=== PATIENT | female | born 1970 | race African-American/Black ===

== ENCOUNTER 2019-04-17 08:52 | Emergency (ER) | payer BC, MEDICAID ==
[~2019-04-17] VITALS: Ht 165.1 cm; Wt 137.0 kg
[~2019-04-17 08:52] MED LIST: LOSARTAN; ZANTAC
[2019-04-17] MEDS ORDERED: ALBUTEROL (0.083%) 2.5MG/3ML NEB HHN STA (09:25)
[2019-04-17] MEDS ORDERED: PREDNISONE 20MG TABLET PO STA (09:25)
[2019-04-17] MEDS ORDERED: IPRATROPIUM BROMIDE (0.02%) 0.5MG/2.5ML NEB HHN STA (09:25)
[2019-04-17] MEDS ORDERED: OXYCODONE HCL/ACETAMINOPHEN 5/325MG TABLET PO ONE (09:30)
[2019-04-17 11:20] VITALS: BP 172/88
== END 2019-04-17 11:26 | disposition home or self-care (01) ==
LOC: ER 08:57
DX: M79.672 Pain in left foot (principal); J45.901 Unspecified asthma with (acute) exacerbation; I10 Essential (primary) hypertension; X50.1XXA Overexertion from prolonged static or awkward postures, initial encounter; Y93.89 Activity, other specified; Y92.9 Unspecified place or not applicable; Z98.51 Tubal ligation status
CPT/HCPCS: 71045; 73630; 94640; 99283; J7512; J7611; Z7610

== ENCOUNTER 2019-11-08 00:22 | Inpatient (IN) | payer BC, MEDICAID ==
[~2019-11-08] VITALS: Ht 154.1 cm; Wt 113.9 kg
[2019-11-08] MEDS ORDERED: SODIUM CHLORIDE 0.9% 1,000 ML IV ONE (02:15)
[2019-11-08 02:27] LABS: BASOPHILS % 0.6 % (0.0-2.0); EOSINOPHILS % 0.5 % (0.0-5.0); HEMATOCRIT. 38.3 % (36.0-48.0); HEMOGLOBIN. 12.9 g/dL (12.0-16.0); LYMPHOCYTES % 25.4 % (20.0-50.0); MEAN CORPUSCULAR HEMOGLOBIN 30.1 pg (28.0-32.0); MEAN CORPUSCULAR VOLUME 89.1 fL (81.0-99.0); MONOCYTES % 6.6 % (2.0-8.0); NEUTROPHILS % 66.9 % (40.0-76.0); PLATELET 353 x1000/uL (130-400); RED BLOOD CELL COUNT 4.29 mill/uL (4.2-5.4); RED CELL DISTRIBUTION WIDTH 13.4 % (11.6-14.6)
[2019-11-08 02:30] LABS: CHLORIDE 104 mEq/L (98-107)
[2019-11-08] MEDS ORDERED: ASPIRIN 325MG TABLET PO ONE (04:30)
[2019-11-08 08:30] VITALS: BP 151/82
[2019-11-08 08:35] VITALS: BP 151/82
[2019-11-08] MEDS ORDERED: ONDANSETRON HCL 4MG/2ML INJ IV PRN (09:15)
[2019-11-08] MEDS: LOSARTAN POTASSIUM 100 MG TABLET PO SCH (09:50)
[2019-11-08] MEDS: ENOXAPARIN 30MG/0.3ML SYR SUBCUT SCH ×2 (09:52→22:15)
[2019-11-08] MEDS ORDERED: AMLO5TAB88 PO (10:40)
[2019-11-08] MEDS ORDERED: OMEP40CA12 PO (10:42)
[2019-11-08 12:00] VITALS: BP 136/71
[2019-11-08 12:38] LABS: LDL CHOLESTEROL 150 mg/dL (5-100)
[2019-11-08 12:41] LABS: HDL CHOLESTEROL 43 mg/dL (40-59)
[2019-11-08] MEDS: ACETAMINOPHEN 325MG TABLET PO PRN (15:02)
[2019-11-08 16:00] VITALS: BP 147/79
[2019-11-08 20:00] VITALS: BP 158/79
[2019-11-08] MEDS ORDERED: NAPROXEN 375MG TABLET PO PRN (20:15)
[2019-11-08] MEDS: TRAZODONE HCL 50MG TABLET PO SCH (22:14)
[2019-11-08] MEDS: ATORVASTATIN CALCIUM 40MG TABLET PO SCH (22:14)
[2019-11-08] MEDS: AMLODIPINE 5MG TABLET PO SCH (22:15)
[2019-11-09] VITALS: BP 143/71
[2019-11-09 04:00] VITALS: BP 118/72
[2019-11-09 08:00] VITALS: BP 150/92
[2019-11-09] MEDS: ASPIRIN 81MG TABLET PO SCH (09:47)
[2019-11-09] MEDS: LOSARTAN POTASSIUM 100 MG TABLET PO SCH (09:47)
[2019-11-09] MEDS: AMLODIPINE 5MG TABLET PO SCH ×2 (09:48→21:49)
[2019-11-09] MEDS: ENOXAPARIN 30MG/0.3ML SYR SUBCUT SCH ×2 (09:49→21:49)
[2019-11-09] MEDS: ACETAMINOPHEN 325MG TABLET PO PRN (13:49)
[2019-11-09 20:00] VITALS: BP 150/77
[2019-11-09] MEDS: ATORVASTATIN CALCIUM 40MG TABLET PO SCH (21:48)
[2019-11-09] MEDS: TRAZODONE HCL 50MG TABLET PO SCH (21:48)
[2019-11-10] VITALS (7 sets, daily range): BP systolic 132–159; BP diastolic 64–78
[2019-11-10] MEDS: AMLODIPINE 5MG TABLET PO SCH (09:26)
[2019-11-10] MEDS: LOSARTAN POTASSIUM 100 MG TABLET PO SCH (09:26)
[2019-11-10] MEDS: ASPIRIN 81MG TABLET PO SCH (09:26)
[2019-11-10] MEDS: ENOXAPARIN 30MG/0.3ML SYR SUBCUT SCH (09:27)
[2019-11-10] MEDS ORDERED: TRAZ-251 PO (14:50)
[2019-11-10] MEDS ORDERED: LIP40 PO (14:50)
[2019-11-10] MEDS ORDERED: LOSA100T3 PO (14:50)
[2019-11-10] MEDS ORDERED: ASPI-1160 PO (14:50)
[2019-11-10] MEDS ORDERED: TRAM50TA3 MT (14:50)
== END 2019-11-10 16:37 | disposition home or self-care (01) | DRG 103 ==
LOC: ER 00:22 → 6WST 05:04 → ENRESERV 07:27
PROVIDERS: ADMIT Internal Medicine; ATTEND Internal Medicine
DX: G43.909 Migraine, unspecified, not intractable, without status migrainosus (principal); I16.1 Hypertensive emergency; E44.1 Mild protein-calorie malnutrition; Z68.42 Body mass index [BMI] 45.0-49.9, adult; E66.01 Morbid (severe) obesity due to excess calories; E78.5 Hyperlipidemia, unspecified; I10 Essential (primary) hypertension; F41.9 Anxiety disorder, unspecified; J45.909 Unspecified asthma, uncomplicated; Z98.51 Tubal ligation status; Z88.1 Allergy status to other antibiotic agents; Z79.899 Other long term (current) drug therapy; Z71.3 Dietary counseling and surveillance
CPT/HCPCS: 36415; 70551; 71045; 80053; 80061; 83036; 83880; 84443; 84484; 85025; 93005; 97162; 99285; J1650; J7030